=== PATIENT | female | born 1970 | race Caucasian/White ===

== ENCOUNTER → 2019-05-31 07:25 | Outpatient (CLI) | payer BC, SELFPAY ==
--- NOTE | ~2019-05-31 | MM_ITS ---
EXAMINATION: MM screening [facility] BI w rosendo HISTORY: Screening mammogram TECHNIQUE: Craniocaudal and mediolateral oblique 3-D tomosynthesis images were obtained and synthetic 2-D images were generated. CAD analysis was submitted and interpreted. COMPARISON: 04/27/2018, 04/10/2017, 03/10/2016 BREAST PARENCHYMAL COMPOSITION: There are scattered areas of fibroglandular density. FINDINGS: There is no evidence of suspicious mass, calcification, or architectural distortion to sugg est malignancy in either breast. There has been no suspicious interval change. IMPRESSION: 1. No mammographic evidence of malignancy. 2. Recommend routine screening mammography in one year. BI-RADS Category 1: Negative Reviewed, dictated and finalized at location A. SORTER
== END ==
PROVIDERS: Visit Provider Nurse Practitioner
DX: Z12.31 Encounter for screening mammogram for malignant neoplasm of breast (principal)
CPT/HCPCS: 77063; 77067

== ENCOUNTER → 2020-06-04 07:27 | Outpatient (CLI) | payer BC, SELFPAY ==
--- NOTE | ~2020-06-04 | MM_ITS ---
EXAMINATION: MM screening [facility] BI w rosendo HISTORY: Screening mammogram TECHNIQUE: Craniocaudal and mediolateral oblique 3-D tomosynthesis images were obtained and synthetic 2-D images were generated. CAD analysis was submitted and interpreted. COMPARISON: 05/31/2019, 04/27/2018, 04/10/2017 BREAST PARENCHYMAL COMPOSITION: There are scattered areas of fibroglandular density. FINDINGS: There is no evidence of suspicious mass, calcification, or architectural distortion to sugg est malignancy in either breast. There has been no suspicious interval change. IMPRESSION: 1. No mammographic evidence of malignancy. 2. Recommend routine screening mammography in one year. BI-RADS Category 1: Negative Reviewed, dictated and finalized at location A. TIER
== END ==
PROVIDERS: Visit Provider Nurse Practitioner
DX: Z12.31 Encounter for screening mammogram for malignant neoplasm of breast (principal)
CPT/HCPCS: 77063; 77067

== ENCOUNTER → 2022-07-23 10:56 | Outpatient (CLI) | payer BC, SELFPAY ==
--- NOTE | ~2022-07-23 | US_ITS ---
EXAMINATION: US pelvic complete w TV DATE: 07/23/2022 11:44 INDICATION: Abnormal uterine bleeding Comparison:08/20/2017 TECHNIQUE: Multiple transabdominal and endovaginal sonographic images of the pelvis performed. FINDINGS: The uterus measures 11.7 x 4.4 x 6.9 cm. There is a septate uterus. Endometrium is 8 mm on both sides. There are uterine fibroids, largest on the right measuring 3.3 cm. The endometrial comple x measures 8 mm. The right ovary measures 1.7 x 1.9 x 1.6 cm and the left ovary measures 2.7 x 1.3 x 1.6 cm. There ar e small follicles in each ovary. Normal doppler signal in both ovaries. There is no free fluid in the pelvis. There are no abnormal masses seen on either side. IMPRESSION: 1. Enlarged fibroid septate uterus. Reviewed, dictated and finalized at location B.
== END ==
PROVIDERS: PCP Nurse Practitioner; Visit Provider Nurse Practitioner
DX: N93.8 Other specified abnormal uterine and vaginal bleeding (principal); D25.9 Leiomyoma of uterus, unspecified
CPT/HCPCS: 76830; 76856

== ENCOUNTER 2022-08-25 01:19 | Day surgery (SDC) | payer BC, SELFPAY ==
[2022-08-18 10:26] VITALS: BMI 32.5
--- NOTE | 2022-08-18 10:32 | PC.NURSE ---
Report to the Outpatient Waiting Room, entrance under the green pavilion located off [facility], at time 0715 on date 08/25/22. Planned Procedure Time: 0915. Time changes happen often and if your time is changed the preop area will call you the afternoon before. - You and your visitor will be asked to self-screen and do not enter if you have any COVID symptoms. - A mask is optional within the hospital at this time. Patients may have clear liquids (water, carbonated beverages, clear teas, apple juice) until 3 hours prior to surgery with a maximum of 20 ounces. - No food from midnight until time of surgery Take the following medications with a SIP of water the morning of surgery: NONE DO NOT STOP ANY OF YOUR OTHER PRESCRIPTION MEDICATIONS PRIOR TO SURGERY EXCEPT THE FOLLOWING Medications to discontinue per physician: VITAMINS/SUPPLEMENTS Date to take last dose: 08/21/22 Please no make-up, nail chinese, hairspray, perfume, deodorant, or body powder the day of surgery. No jewelry (including any body piercings) or valuables the day of surgery, leave them at home. Please take a shower or bath the night before, or the morning of, surgery with an antibacterial soap. Wear comfortable, loose fitting clothing. - Jewelry must be removed prior to entering the operating room. Rings and piercings that are not removed may be cut off. - The hospital will not accept responsibility for valuables. - Please leave all valuables, including medications, at home the day of surgery. If you are going home after surgery, a licensed courier delivery driver must drive you home. - NO public transportation without another adult if you receive anesthesia. - We recommend that an adult stay with you for 24 hours following discharge. - We also recommend that you do not drive, make important decision, drink alcoholic beverages, or take any drugs that were not prescribed by your health care provider for at least 24 hours after your discharge time. Follow any additional instructions given to you from your surgeon. If you or anyone in your household have experienced Covid symptoms in the past week, please notify your surgeon or the nurse liaison at the phone number below for possible testing. Telephone instructions given to PT - CHRISTIANO BOO and asked if any additional questions and then verbalized understanding. Patient advised to call surgeon office or pre surgery nurse liaison [phone] if any additional questions.
--- NOTE | 2022-08-25 07:36 | P.HP_ITS ---
History of Present Illness History of Present Illness Consent: Risks, benefits, and alternatives have been discussed and questions answered. Patient agrees to proceed with procedure. Chief complaint: Menorrhagia Narrative: Verito Doll is a 52 year old female with recurrent menorrhagia. Patient with a history endometrial polyps removed in 2018. Patient with a known history of bicornuate uterus and known fibroids. Plan to proceed with D&C hysteroscopy. Risks of infection, bleeding perforation, and possible pathology are reviewed. Patient voices understanding and agrees to proceed. Review of Systems Review of Systems: not repeated day of surgery; patient states no changes in status [facility] Past Medical History Medical History (Updated 08/25/22 @ 07:40 by Ita Cardoza MD) Depression Surgical History Surgical History (Updated 08/25/22 @ 07:39 by Ita Cardoza MD) History of x2 History of hip surgery removal of bone spur History of hysteroscopy 2018 Hx laparoscopic cholecystectomy Status post breast reduction Social History Social History Smoking packs per day: 0.5 Smoking cigarettes per day: 10.0 Years smoked: 13 Smoking pack-years: 6.50 Smoking status: Former smoker Tobacco type: cigarettes Smoking end date: 04/13/03 Alcohol intake: current Drinks per week: 3 Substance use: never Substance use type: does not use Living arrangements: with family Spiritual care concerns: No Meds Home Medications and Allergies Home Medications Medication Instructions Recorded Confirmed Type Lactobacillus 1 cap PO HS 08/18/22 08/18/22 History acidophilus-Bifidobac.animalis 2.5 billion cell capsule (Daily Probiotic) atorvastatin 10 mg tablet 10 mg PO HS 08/18/22 08/18/22 History cetirizine 10 mg tablet (Zyrtec) 10 mg PO DAILY 08/18/22 08/18/22 History cholecalciferol (vitamin D3) 125 125 mcg PO HS 08/18/22 08/18/22 History mcg (5,000 unit) tablet (Vitamin D3) multivitamin 1 tablet PO DAILY 08/18/22 08/18/22 History Allergies Allergy/AdvReac Type Severity Reaction Status Date / Time No Known Allergies Allergy Unverified 08/18/22 10:24 Exam Const: General: healthy appearing and alert Orientation/consciousness: patient oriented x3 Resp: Effort & Inspection: normal respiratory effort GI: GI Palp: Yes Soft to palpation, No Tenderness to palpation present (GI) and No Palpable mass present : External Female Exam: normal external appearance Speculum Exam - Vagina: normal appearance of the vagina and normal vaginal discharge Speculum Exam - Cervix: normal appearance of the cervix Bimanual exam- vagina & uterus: consistency normal and enlarged ( Approximately 12 week size) Bimanual Exam- Adnexa, other: normal adnexae and No adnexal tenderness Neuro: General: patient oriented x3 Assessment and Plan Assessment and plan (1) Menorrhagia: Code(s): N92.0 - Excessive and frequent menstruation with regular cycle Status: Acute Assessment and Plan: to proceed with D&C hysteroscopy
--- NOTE | 2022-08-25 07:36 | WPDHPUPDATE1 ---
History and Physical Update Update Date/Time: 08/25/22 07:36 History and Physical has been reviewed, including an updated exam of the patient. There are NO changes in the patient's condition. Risks, benefits, and alternatives have been discussed and questions answered. Patient agrees to proceed with procedure.
[2022-08-25] MEDS: ACETAMINOPHEN 500 MG TABLET 1000 MG PO (08:14)
[2022-08-25] MEDS: LACTATED RINGERS 1,000 ML 30 ML IV CONT (08:20)
[2022-08-25 08:30] VITALS: BP 108/73; PULSE 72; RESP 16; TEMP 36.7; O2SAT 100
--- NOTE | 2022-08-25 08:45 | WPDANESEPPF ---
Anes - Initial Pre Proc Eval Procedure: Operation Date: 08/25/22 09:15 Proposed Procedures p Hysteroscopy Dilation and Curettage - Ita Cardoza MD Date/Time: 08/25/22 08:45 Surgeon: Ita Cardoza MD Pre Op Diagnosis: Menorrhagia Patient Data Age: 52 Gender: F Height: 1.57 m Weight: 81.5 kg Last Vital Signs Temp 98.1 F 08/25/22 08:30 Pulse 72 08/25/22 08:30 Resp 16 08/25/22 08:30 BP 108/73 08/25/22 08:30 Pulse Ox 100 08/25/22 08:30 O2 Del Method Room Air 08/25/22 08:30 Allergies Allergy/AdvReac Type Severity Reaction Status Date / Time No Known Allergies Allergy Unverified 08/25/22 08:01 Home Medications Medication Instructions Recorded Confirmed Type Lactobacillus 1 cap PO HS 08/18/22 08/25/22 History acidophilus-Bifidobac.animalis 2.5 billion cell capsule (Daily Probiotic) atorvastatin 10 mg tablet 10 mg PO HS 08/18/22 08/25/22 History cetirizine 10 mg tablet (Zyrtec) 10 mg PO DAILY 08/18/22 08/25/22 History cholecalciferol (vitamin D3) 125 125 mcg PO HS 08/18/22 08/25/22 History mcg (5,000 unit) tablet (Vitamin D3) multivitamin 1 tablet PO DAILY 08/18/22 08/25/22 History Patient hx anesthesia problems: none Family hx anesthesia problems: none Results Review: All pre-operative results and documents have been reviewed as part of the pre-operative evaluation. [facility] Past Medical History Medical History (Updated 08/25/22 @ 07:40 by Ita Cardoza MD) Depression Surgical History Surgical History (Updated 08/25/22 @ 07:39 by Ita Cardoza MD) History of x2 History of hip surgery removal of bone spur History of hysteroscopy 2018 Hx laparoscopic cholecystectomy Status post breast reduction Social History Social History Smoking packs per day: 0.5 Smoking cigarettes per day: 10.0 Years smoked: 13 Smoking pack-years: 6.50 Smoking status: Former smoker Tobacco type: cigarettes Smoking end date: 04/13/03 Alcohol intake: current Drinks per week: 3 Substance use: never Substance use type: does not use Living arrangements: with family Spiritual care concerns: No Anes - Eval Final PreProcedure Day of Procedure 08/25/22 08:45 Patient weight: obese Heart: regular rate and rhythm Lungs: clear to auscultation Airway: Mallampati scale Neurological: alert and oriented Last oral intake: >/= 8 hours ASA classification: II Emergent: no Anesthetic plan: proceed Anesthesia type and monitoring: general GIVS and standard monitoring Results Review: All pre-operative results and documents have been reviewed as part of the pre-operative evaluation. Informed Consent: The patient's anesthetic plan and its attendant risks and benefits were discussed with the patient/family/POA. Questions were solicited and answers provided to the satisfaction of the patient/family/POA.
[2022-08-25] MEDS: LIDOCAINE HCL 1% LOCAL INJ 20 ML VIAL 10 ML INFILTRATE (09:39)
[2022-08-25] MEDS: KETOROLAC 15 MG/ML VIAL (*BKC) IV PUSH (09:47)
[2022-08-25 09:53] VITALS: BP 102/68; PULSE 67; RESP 12; O2SAT 93
--- NOTE | 2022-08-25 10:05 | W.PM.PROC2 ---
Procedure Note - Detailed Date of Procedure 08/25/22 Pre-op Diagnosis Menorrhagia; bicornuate uterus Post-op Diagnosis Same Procedure Performed D&C hysteroscopy with resection of polyps Surgeon Ita Cardoza MD Anesthesia MAC and Local Findings uterus sounds to 12cm; uterus is confirmed bicornuate; polyps in each side of the uterus Description of Procedure The patient is taken to the operating room and placed under anesthesia in the dorsal lithotomy position. She was prepped and draped in usual sterile fashion. [place] speculum was placed in the vagina and the cervix was grasped on the anterior lip with a tenaculum. The cervix is injected in each quadrant with 1% lidocaine. The cervix is dilated to a 5 Hegar. The uterus is then able to be sounded to 12cm. The diagnostic hysteroscope was placed with the above-stated findings. The resection device is opened and the right polyp is removed under direct visualization. The hysteroscope was replaced into the left cornea and the polyp was removed from the left side. The hysteroscope was then removed and the small curette is used to curette the endometrium aiming for each cornu as previous angles identified. All instruments were then removed. Patient was awakened from anesthesia and taken to recovery in stable condition. Sponge, needle, and instrument counts are correct per the OR staff. Estimated Blood Loss 5 Drains No Packing No Pathology Yes ( Endometrial shavings and curettings) Complications No immediate complications Condition Stable Disposition PACU
[2022-08-25 10:15] VITALS: BP 105/72; PULSE 48; RESP 15
[2022-08-25 10:23] VITALS: BP 102/71; PULSE 59; RESP 16
[2022-08-25 10:53] VITALS: BP 123/77; PULSE 51; RESP 16
== END 2022-08-25 11:18 | disposition home or self-care (01) ==
PROVIDERS: PCP Nurse Practitioner Family; Visit Provider Obstetrics & Gynecology Gynecology
PROC: 0U5B8ZZ Destruction of Endometrium, Via Natural or Artificial Opening Endoscopic (ICD-10-PCS; CPT 58563; principal; 2022-08-25 09:15)
DX: N92.0 Excessive and frequent menstruation with regular cycle (principal); Q51.3 Bicornate uterus; Z87.891 Personal history of nicotine dependence; E66.9 Obesity, unspecified; Z68.32 Body mass index [BMI] 32.0-32.9, adult
CPT/HCPCS: 58558; 88305; A9270; J1885; J2250; J2405; J2704; J3010; J7120

== ENCOUNTER → 2022-10-01 12:41 | Outpatient (CLI) | payer BC, SELFPAY ==
--- NOTE | ~2022-10-01 | MM_ITS ---
EXAMINATION: MM screening [facility] BI w rosendo HISTORY: Screening mammogram TECHNIQUE: Craniocaudal and mediolateral oblique 3-D tomosynthesis images were obtained and synthetic 2-D images were generated. CAD analysis was submitted and interpreted. COMPARISON: June 04, 2020, May 31, 2019, April 27, 2018 bilateral screening mammogram exam inations BREAST PARENCHYMAL COMPOSITION: There are scattered areas of fibroglandular density. FINDINGS: Multiple benign sebaceous cyst calcifications. There is no evidence of suspicious mass, jovanni cification, or architectural distortion to suggest malignancy in either breast. There has been no nely picious interval change. IMPRESSION: 1. No mammographic evidence of malignancy. 2. Recommend routine screening mammography in one year. BI-RADS Category 1: Negative Reviewed, dictated and finalized at location A.
== END ==
PROVIDERS: PCP Nurse Practitioner Family; Visit Provider Nurse Practitioner
DX: Z12.31 Encounter for screening mammogram for malignant neoplasm of breast (principal)
CPT/HCPCS: 77063; 77067

== ENCOUNTER → 2023-01-27 10:44 | Outpatient (CLI) | payer BC, SELFPAY ==
--- NOTE | ~2023-01-27 | XR_ITS ---
XR chest 2V DATE: 01/27/2023 10:56 INDICATION: Cough TECHNIQUE: 2 views COMPARISON: None FINDINGS: Normal heart size. No hilar or mediastinal enlargement. No pulmonary infiltrate or consolid ation, pleural effusion or pulmonary vascular congestion or pneumothorax is detected. Included skelet al structures are unremarkable. IMPRESSION: Negative Reviewed, dictated and finalized at location A. IMPRESSION: Negative
== END ==
PROVIDERS: PCP Nurse Practitioner Family; Visit Provider Nurse Practitioner Family
DX: R05.9 Cough, unspecified (principal)
CPT/HCPCS: 71046